=== PATIENT | male | born 1960 | race Caucasian/White ===

== ENCOUNTER 2016-10-28 14:36 | Emergency (ER) | payer OTHER ==
--- NOTE | 2016-10-28 15:50 | EDPHY ---
H & P Stated Complaint: fell of chairs, hit head, neg loc, denies neck pain, hip and wrist pain Time Seen by Provider: 10/28/16 15:40 HPI/ROS: CHIEF COMPLAINT: Left wrist and hip pain HISTORY OF PRESENT ILLNESS: The patient is a 56-year-old man who was standing on a chair when it collapsed and he fell. He fell on an outstretched left arm. He is complaining of left wrist pain as well as left hip pain. He has been ambulatory. He also states that he had his head on the cement. He has an abrasion to his nasal bridge and right lower eyelid. He does not think he loss consciousness but did see [facility] and has a headache. He denies neck pain or thoracic pain. REVIEW OF SYSTEMS: Constitutional: denies: chills, fever, recent illness, recent injury EENTM: denies: blurred vision, double vision, nose congestion Respiratory: denies: cough, shortness of breath Cardiac: denies: chest pain, irregular heart rate, lightheadedness, palpitations Gastrointestinal/Abdominal: denies: abdominal pain, diarrhea, nausea, vomiting, blood streaked stools Genitourinary: denies: dysuria, frequency, hematuria, pain Musculoskeletal: denies: joint pain, muscle pain Skin: denies: lesions, rash, jaundice, bruising Neurological: See HPI Hematologic/Lymphatic: denies: blood clots, easy bleeding, easy bruising Immunologic/allergic: denies: HIV/AIDS, transplant EXAM: GENERAL: Well-appearing, well-nourished and in no acute distress. HEAD: Atraumatic, normocephalic. EYES: Abrasion to right lower eyelid, no laceration, Pupils equal round and reactive to light, extraocular movements intact, sclera anicteric, conjunctiva are normal. ENT: Abrasion to nasal bridge, no deformity. TMs normal, nares patent, oropharynx clear without exudates. Moist mucous membranes. NECK: Normal range of motion, supple without lymphadenopathy or JVD. No midline tenderness. LUNGS: Breath sounds clear to auscultation bilaterally and equal. No wheezes rales or rhonchi. HEART: Regular rate and rhythm without murmurs, rubs or gallops. ABDOMEN: Soft, nontender, normoactive bowel sounds. No guarding, no rebound. No masses appreciated. BACK: No CVA tenderness, no spinal tenderness, step-offs or deformities EXTREMITIES: Left wrist pain, normal range of motion and sensation. No obvious deformity. Minimal swelling over the distal radius, no snuffbox tenderness. Left hip pain with mild contusion. Patient is ambulatory. NEUROLOGICAL: Cranial nerves II through XII grossly intact. Normal speech, normal gait. 5/5 strength, normal movement in all extremities, normal sensation PSYCH: Normal mood, normal affect. SKIN: Warm, dry, normal turgor, no visible rashes or lesions. Source: Patient Exam Limitations: No limitations - Personal History Current Tetanus/Diphtheria Vaccine: Yes Current Tetanus Diphtheria and Acellular Pertussis (TDAP): Yes - Medical/Surgical History Hx Asthma: No Hx Chronic Respiratory Disease: No Hx Diabetes: No Hx Cardiac Disease: No Hx Renal Disease: No Hx Cirrhosis: No Hx Alcoholism: No Hx HIV/AIDS: No Hx Splenectomy or Spleen Trauma: No Other PMH: pmh:labrium surgery, colon surg,. psh:dental - Family History Significant Family History: No pertinent family hx - Social History Smoking Status: Never smoked Alcohol Use: Sober Drug Use: None Constitutional: Initial Vital Signs Temperature (C) 36.9 C 10/28/16 14:50 Heart Rate 72 10/28/16 14:50 Respiratory Rate 16 10/28/16 14:50 Blood Pressure 127/80 H 10/28/16 14:50 O2 Sat (%) 96 10/28/16 14:50 O2 Delivery Mode Room Air Allergies/Adverse Reactions: ciprofloxacin [From Cipro] Allergy (Verified 10/28/16 14:54) Sulfa (Sulfonamide Antibiotics) Allergy (Verified 10/28/16 14:54) Home Medications: Medication Instructions Recorded NK [No Known Home Meds] 10/28/16 Medical Decision Making - Diagnostics Imaging Results: Imaging Impressions Head CT 10/28/16 15:46 Impression: Normal. No acute fracture or evidence of acute intracranial injury. Findings discussed with Emergency Department physician, Bernabe Johns M.D., at October 28, 2016 at 1620. Hip X-Ray 10/28/16 15:47 Impression: No fracture. Wrist X-Ray 10/28/16 15:47 Impression: Essentially undisplaced fracture of the distal left radius. Imaging: Discussed imaging studies w/ call circuit worker Radiologist, I viewed and interpreted images myself Procedures: Procedure: Splint placement. A Velcro wrist splint was applied. After application of the splint I returned and re-examined the patient. The splint was adequately immobilizing the joint and distal to the splint the patient's circulation and sensation was intact. ED Course/Re-evaluation: Head CT ordered in this adult patient for trauma for the following indication: Fall greater than 3 feet and headache 5:06 p.m. we discussed the imaging results. The patient is relieved. His wrist was placed in a Velcro splint and he will follow up with the orthopedist in [place]. We also discussed concussions and gradual return to activity. His abrasions were cleaned and dressed with antibiotic ointment. Differential Diagnosis: Partial list of the Differential diagnosis considered include but were not limited to; abrasion, fracture, head injury, concussion and although unlikely based on the history and physical exam, I also considered hip fracture, assault , infection. I discussed these differential diagnoses and the plan with the patient as well as the usual and expected course. The patient understands that the diagnosis is provisional and that in medicine we are not always correct and that further workup is often warranted. Usual and customary warnings were given. All of the patient's questions were answered. The patient was instructed to return to the emergency department should the symptoms at all worsen or return, otherwise to followup with the physician as we discussed. Departure - Departure Disposition: Home, Routine, Self-Care Clinical Impression: Concussion Qualifiers: Encounter type: initial encounter Loss of consciousness presence/duration: without LOC Qualified Code(s): S06.0X0A - Concussion without loss of consciousness, initial encounter Wrist fracture, left Qualifiers: Encounter type: initial encounter Fracture type: closed Qualified Code(s): S62.102A - Fracture of unspecified carpal bone, left wrist, initial encounter for closed fracture Condition: Fair Instructions: Wrist Fracture in Adults (ED), Concussion (ED) Additional Instructions: Take ibuprofen or Tylenol as needed for pain. Referrals: JACKLYN PELAEZ [Other] - As per Instructions Juan Choi MD [Medical Doctor] - As per Instructions
[2016-10-28 17:35] VITALS: BP 106/69; PULSE 70; RESP 15; TEMP 98.8; O2SAT 95
== END 2016-10-28 17:35 | disposition home or self-care (01) ==
DX: S52.502A Unspecified fracture of the lower end of left radius, initial encounter for closed fracture (principal); S06.0X0A Concussion without loss of consciousness, initial encounter; W18.09XA Striking against other object with subsequent fall, initial encounter
CPT/HCPCS: L3807